=== PATIENT | female | born 1985 | race Caucasian/White ===

== ENCOUNTER 2018-08-23 23:27 | Emergency (ER) | payer BC ==
--- OUTSIDE RECORDS SUMMARY | 2018-08-23 23:30 | XMS REPORT ---
:1985 [facility] Address [address] [place] [address] Care Team Providers Name Role Phone Unavailable Unavailable Unavailable Payers Payer Name Policy Type Policy Number Effective Date Expiration Date Problems This patient has no known problems. Allergies, Adverse Reactions, Alerts Allergy Name Allergy Status Severity Reaction(s) Onset Inactive Treating Comments Type Date Date Clinician No Known DA Active U 2009- Intolerances 3-22 00:00: 00 Medications This patient has no known medications.
--- OUTSIDE RECORDS SUMMARY | 2018-08-23 23:30 | XMS REPORT ---
:1985 Author Organization eClinicalWorks Care Team Providers Name Role Phone Jose G Anderson Provider Role Unavailable Allergies No Known Allergies Problems Problem Type Condition Code Onset Dates Condition Status Assessment Pelvic congestion syndrome N94.89 Active Assessment Pelvic pain R10.2 Active Assessment IUD surveillance Z30.431 Active Problem IUD surveillance Z30.431 Active Problem Acute vaginitis N76.0 Active Problem Pelvic congestion syndrome N94.89 Active Problem Encounter for gynecological Z01.419 Active examination without abnormal finding Problem Pelvic pain R10.2 Active Problem Encounter for insertion of mirena Z30.430 Active IUD Medications No Known Medications Results No Known Results Summary Purpose eClinicalWorks Submission
--- OUTSIDE RECORDS SUMMARY | 2018-08-23 23:30 | XMS REPORT ---
:1985 Author Organization eClinicalWorks Care Team Providers Name Role Phone Kenrick Andersonswinder Provider Role Unavailable Allergies, Adverse Reactions, Alerts Substance Reaction Event Type N.K.D.A. Info Not Available Non Drug Allergy Problems Problem Type Condition Code Onset Dates Condition Status Assessment Acute vaginitis N76.0 Active Assessment Pelvic pain R10.2 Active Assessment IUD surveillance Z30.431 Active Problem IUD surveillance Z30.431 Active Problem Acute vaginitis N76.0 Active Problem Pelvic congestion syndrome N94.89 Active Problem Encounter for gynecological Z01.419 Active examination without abnormal finding Problem Pelvic pain R10.2 Active Problem Encounter for insertion of mirena Z30.430 Active IUD Medications Medication Code Code Instructions Start End Status Dosage System Date Date Wellbutrin SR [facility] 27729993195 150 MG Orally Active 1 tablet Twice a day Mirena (52 MG) [facility] 54365012323 20 MCG/24HR Active as directed Intrauterine Flagyl ND 22783816777 500 MG Orally Apr 06, Active 1 tablet every 12 hours 2017 Results Name Result Date Reference Range Unit Abnormality Flag URINALYSIS AUTO W/O SCOPE (49286) ----NIT neg 20180406 ----URO 0.2 20180406 ----PROTEIN neg 20180406 ----pH 6.5 20180406 ----BLO neg 20180406 ----GLUCOSE neg 20180406 ----JEANNE 1+ 20180406 ----BILIRUBIN neg 20180406 ----KETONES neg 20180406 ----SPECIFIC 1.025 20180406 GRAVITY SURESWAB(R), VAGINOSIS/VAGINITIS PLUS ----C. TROPICALIS, NOT DETECTED 20180406 DNA ----GARDNERELLA 7.9 20180406 Log VAGINALIS (cells/mL) ----C. NOT DETECTED 20180406 PARAPSILOSIS, DNA ----MEGASPHAERA 7.0 20180406 Log SPECIES (cells/mL) ----C. ALBICANS, NOT DETECTED 20180406 DNA ----C. GLABRATA, NOT DETECTED 20180406 DNA ----SURESWAB(R) NOT DETECTED 20180406 TRICHOMONAS VAGINALIS RNA, QL, TMA ----LACTOBACILLUS DETECTED 20180406 Log SPECIES (cells/mL) ----ATOPOBIUM 7.6 20180406 Log VAGINAE (cells/mL) ----NEISSERIA NOT DETECTED 20180406 GONORRHOEAE RNA, TMA, UROGENITAL ----BV CATEGORY: EQUIVOCAL 20180406 A ----CHLAMYDIA NOT DETECTED 20180406 TRACHOMATIS RNA, TMA, UROGENITAL Summary Purpose eClinicalWorks Submission
--- OUTSIDE RECORDS SUMMARY | 2018-08-23 23:30 | XMS REPORT ---
:1985 Author Organization eClinicalWorks Care Team Providers Name Role Phone Jose G Anderson Provider Role Unavailable Allergies, Adverse Reactions, Alerts Substance Reaction Event Type N.K.D.A. Info Not Available Non Drug Allergy Problems Problem Type Condition Code Onset Dates Condition Status Assessment Surveillance for control, Z30.431 Active intrauterine device Problem Encounter for gynecological Z01.419 Active examination without abnormal finding Assessment Encounter for initial prescription Z30.015 Active of vaginal ring hormonal contraceptive Problem Encounter for initial prescription Z30.015 Active of vaginal ring hormonal contraceptive Problem Pelvic congestion syndrome N94.89 Active Problem Surveillance for control, Z30.431 Active intrauterine device Problem Acute vaginitis N76.0 Active Problem Encounter for insertion of mirena Z30.430 Active IUD Problem Pelvic pain R10.2 Active Problem IUD surveillance Z30.431 Active Medications Medication Code Code Instructions Start End Status Dosage System Date Date Wellbutrin SR [facility] 21479174506 150 MG Orally Active 1 tablet Twice a day Mirena (52 MG) [facility] 22823791327 20 MCG/24HR May 09, Active as directed Intrauterine 2019 NuvaRing [facility] 86632923902 0.12-0.015 May 09, Active 1 ring MG/24HR Vaginal 2019 insert vaginally for 3 weeks Results No Known Results Summary Purpose eClinicalWorks Submission
--- OUTSIDE RECORDS SUMMARY | 2018-08-23 23:30 | XMS REPORT ---
:1985 Author Organization eClinicalWorks Care Team Providers Name Role Phone Monica Jose G Provider Role Unavailable Allergies, Adverse Reactions, Alerts Substance Reaction Event Type N.K.D.A. Info Not Available Non Drug Allergy Problems Problem Type Condition Code Onset Dates Condition Status Assessment Encounter for gynecological Z01.419 Active examination without abnormal finding Problem Encounter for gynecological Z01.419 Active examination without abnormal finding Assessment Well woman exam with routine Z01.419 Active gynecological exam Assessment General counseling and advice on Z30.09 Active contraceptive management Medications Medication Code Code Instructions Start End Date Status Dosage System Date Wellbutrin SR [facility] 77187682256 150 MG Orally Active 1 tablet Twice a day Lorri 28 [facility] 99744588565 3-0.03 MG Orally Active 1 tablet Once a day Results Name Result Date Reference Range Unit Abnormality Flag TEST URINE ----RESULTS NEG 20171014 URINALYSIS AUTO W/O SCOPE (26217) ----PROTEIN 1+ 20171014 ----pH 7.0 20171014 ----NIT NEGATIVE 20171014 ----JEANNE NEGATIVE 20171014 ----URO 0.2 20171014 ----SPECIFIC GRAVITY 1.020 20171014 ----BLO NEGATIVE 20171014 ----BILIRUBIN NEGATIVE 20171014 ----KETONES NEGATIVE 20171014 ----GLUCOSE NEGATIVE 20171014 Summary Purpose eClinicalWorks Submission
--- OUTSIDE RECORDS SUMMARY | 2018-08-23 23:30 | XMS REPORT ---
:1985 Author Organization eClinicalWorks Care Team Providers Name Role Phone Jose G Anderson Provider Role Unavailable Allergies No Known Allergies Problems Problem Type Condition Code Onset Dates Condition Status Problem Encounter for gynecological Z01.419 Active examination without abnormal finding Problem Encounter for initial prescription Z30.015 Active of vaginal ring hormonal contraceptive Problem Pelvic congestion syndrome N94.89 Active Problem Surveillance for control, Z30.431 Active intrauterine device Problem Acute vaginitis N76.0 Active Problem Encounter for insertion of mirena Z30.430 Active IUD Problem Pelvic pain R10.2 Active Problem IUD surveillance Z30.431 Active Medications Medication Code Code Instructions Start End Status Dosage System Date Date Clindamycin [facility] 67259573186 1 % Externally May 18, Jun 17, Active 1 application Phosphate Twice a day 2018 2018 to affected area Results No Known Results Summary Purpose eClinicalWorks Submission
--- OUTSIDE RECORDS SUMMARY | 2018-08-23 23:30 | XMS REPORT ---
:1985 Author Organization eClinicalWorks Care Team Providers Name Role Phone MonicaFatemehJose G Provider Role Unavailable Allergies, Adverse Reactions, Alerts Substance Reaction Event Type N.K.D.A. Info Not Available Non Drug Allergy Problems Problem Type Condition Code Onset Dates Condition Status Problem Encounter for gynecological Z01.419 Active examination without abnormal finding Problem Encounter for insertion of mirena Z30.430 Active IUD Assessment Encounter for insertion of mirena Z30.430 Active IUD Medications Medication Code Code Instructions Start End Date Status Dosage System Date Wellbutrin SR [facility] 94390366236 150 MG Orally Active 1 tablet Twice a day Lorri 28 [facility] 59899866903 3-0.03 MG Orally Active 1 tablet Once a day Results Name Result Date Reference Range Unit Abnormality Flag TEST URINE ----RESULTS NEG 20171104 URINALYSIS AUTO W/O SCOPE (62242) ----PROTEIN NEG 20171104 ----pH 7.5 20171104 ----NIT NEG 20171104 ----JEANNE NEG 20171104 ----URO 0.2 20171104 ----SPECIFIC GRAVITY 1.015 20171104 ----BLO 1+ 20171104 ----BILIRUBIN NEG 20171104 ----KETONES 1+ 20171104 ----GLUCOSE NEG 20171104 Summary Purpose eClinicalWorks Submission
[2018-08-24] MEDS ORDERED: MORPHINE 4 MG/ML SYR ONE ×2 (00:01→02:28)
[2018-08-24] MEDS ORDERED: NA CHLORIDE 0.9% 1,000 ML ONE (00:01)
[2018-08-24] MEDS ORDERED: ONDANSETRON 4 MG/2 ML VIAL ONE ×2 (00:01→02:28)
[2018-08-24 00:10] LABS: Absolute Lymphocytes (CBC) 2.5 K/uL (0.7-4.9); Absolute Monocytes 0.6 K/uL (0.1-1.3); Absolute Neutrophil 4.7 K/uL (1.8-8.0); Basophils % 0.4 % (0-1.3); Eosinophils % 5.5 % (0-4.4); Lymphocytes % 30.2 % (15.3-44.8); MPV 7.6 fL (7.6-11.3); Monocytes % 7.5 % (3.3-12.3); RBC Red Blood Cell Count 4.37 M/uL (3.86-4.86)
[2018-08-24 00:27] LABS: ALT/SGPT 20 U/L (12-78); AST/SGOT 14 U/L (15-37); Albumin 3.8 g/dL (3.4-5.0); Alkaline Phosphatase 69 U/L (45-117); BUN Blood Urea Nitrogen 11 mg/dL (7-18); Bicarbonate 23 mmol/L (21-32); Bilirubin Direct < 0.1 mg/dL (0-0.2); Bilirubin Total 0.3 mg/dL (0.2-1.0); Glucose Level 121 mg/dL (74-106); Lipase 152 U/L (73-393); Potassium 3.4 mmol/L (3.5-5.1); Protein, Total 7.4 g/dL (6.4-8.2); Sodium Level 142 mmol/L (136-145)
[2018-08-24 01:09] LABS: Urine Blood NEGATIVE (NEG); Urine Glucose NEGATIVE (NEG); Urine Protein NEGATIVE (NEG)
--- NOTE | 2018-08-24 02:58 | ER ---
Nurse's Notes [facility] Name: Korin Medrano Age: 33 yrs Sex: Female : 1985 Arrival Date: 08/23/2018 Time: 23:32 Bed 25 Private MD: Cody Larkin E Diagnosis: Gastrointestinal hemorrhage, unspecified;Abdominal tenderness Presentation: 08/23 23:38 Presenting complaint: Patient states: Had colonoscopy on Wednesday, reports lower tl2 abdominal pain and rectal bleeding started this morning with increased bleeding throughout the day. Pt reports feeling nausea, chills and clamminess. Transition of care: patient was not received from another setting of care. Onset of symptoms was August 23, 2018. Risk Assessment: Do you want to hurt yourself or someone else? Patient reports no desire to harm self or others. Initial Sepsis Screen: Does the patient meet any 2 criteria? No. Patient's initial sepsis screen is negative. Does the patient have a suspected source of infection? No. Patient's initial sepsis screen is negative. Care prior to arrival: None. 23:38 Method Of Arrival: Ambulatory tl2 23:38 Acuity: DERIAN 3 tl2 Triage Assessment: 23:40 General: Appears in no apparent distress. uncomfortable, Behavior is calm, cooperative, tl2 appropriate for age. Pain: Complains of pain in right lower quadrant and left lower quadrant. GI: Reports lower abdominal pain, rectal bleeding, nausea. 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 - Social history:: Smoking status: Patient/guardian denies using tobacco. - Ebola Screening: : No symptoms or risks identified at this time. Screenin:42 Abuse screen: Denies threats or abuse. Nutritional screening: No deficits noted. tl2 Tuberculosis screening: No symptoms or risk factors identified. Fall Risk None identified. Assessment: 23:40 General: Appears in no apparent distress. comfortable, Behavior is calm, cooperative, ca1 appropriate for age. Pain: Complains of pain in right lower quadrant and left lower quadrant Pain does not radiate. Pain currently is 7 out of 10 on a pain scale. Pain began 1 day ago. 23:41 Neuro: Level of Consciousness is awake, alert, obeys commands, Oriented to person, ca1 place, time, situation. Cardiovascular: Heart tones S1 S2 present Capillary refill < 3 seconds Patient's skin is warm and dry. Respiratory: Airway is patent Respiratory effort is even, unlabored, Respiratory pattern is regular, symmetrical, Breath sounds are clear bilaterally. GI: Abdomen is flat, non-distended, Bowel sounds present X 4 quads. Abd is soft X 4 quads Abdomen is tender to palpation in right lower quadrant and left lower quadrant Reports nausea. GI: Reports rectal bleeding. : No deficits noted. No signs and/or symptoms were reported regarding the genitourinary system. EENT: No deficits noted. No signs and/or symptoms were reported regarding the EENT system. Derm: Skin is intact, is healthy with good turgor, Skin is pink, warm \T\ dry. Musculoskeletal: Circulation, motion, and sensation intact. Capillary refill < 3 seconds. 08/24 00:36 Reassessment: Patient appears in no apparent distress at this time. Patient and/or ca1 family updated on plan of care and expected duration. Pain level reassessed. Patient is alert, oriented x 3, equal unlabored respirations, skin warm/dry/pink. 02:39 Reassessment: Patient appears in no apparent distress at this time. Patient and/or rv family updated on plan of care and expected duration. Pain level reassessed. Patient is alert, oriented x 3, equal unlabored respirations, skin warm/dry/pink. patient's pain is fluctuating. still bleeding from the lower GI as evidence by fresh blood. plan of care explained by Dr Elias. for transfer to another facility. 03:11 Reassessment: Patient appears in no apparent distress at this time. Patient and/or rv family updated on plan of care and expected duration. Pain level reassessed. Patient is alert, oriented x 3, equal unlabored respirations, skin warm/dry/pink. PAIN GOT BETTER AFTER GIVING PAIN MEDICINE. CALLED REPORT TO KIMBERLY YUNG RN OF [facility]. AWAITING TRANSPORT. Vital Signs: 08/23 23:40 BP 126 / 86; Pulse 89; Resp 18; Temp 97.8(O); Pulse Ox 100% on R/A; Weight 63.5 kg; tl2 Height 5 ft. 6 in. (167.64 cm); Pain 7/10; 08/24 00:36 BP 106 / 72; Pulse 71; Resp 18 S; Pulse Ox 100% on R/A; ca1 01:30 BP 99 / 55; Pulse 84; Resp 18; Pulse Ox 99% ; rv 02:00 BP 111 / 78; Pulse 77; Resp 17; Pulse Ox 100% ; rv 02:40 BP 116 / 77; Pulse 78; Resp 16; Pulse Ox 98% ; rv 02:43 Pain 2/10; rv 02:43 Pain 2/10; rv 03:00 BP 117 / 77; Pulse 79; Resp 17; Pulse Ox 98% ; rv 08/23 23:40 Body Mass Index 22.60 (63.50 kg, 167.64 cm) tl2 ED Course: 08/23 23:32 Patient arrived in ED. es 23:33 Cody Larkin MD is Private Physician. es 23:40 Julia Vazquez RN is Primary Nurse. ca1 23:40 Triage completed. tl2 23:40 Arm band placed on right wrist. tl2 23:42 Patient has correct armband on for positive identification. Placed in gown. Bed in low tl2 position. Call light in reach. Side rails up X 1. Adult w/ patient. 23:44 Jono Elias MD is Attending Physician. tw4 23:45 Pulse ox on. NIBP on. ca1 23:50 Inserted saline lock: 20 gauge in right antecubital area, using aseptic technique. ca1 ,using aseptic technique. by MARCUS Adams Blood collected. 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 rv 00:00 Patient transferred, IV remains in place. rv 00:15 Radiology exam delayed due to lab results not completed at this time. (BUN/Creatinine) vm2 test not completed at this time. 00:32 Radiology exam delayed due to test not completed at this time. kw1 01:32 CT Abd/Pelvis - W/Contrast In Process Unspecified. EDMS Administered Medications: 08/23 23:50 Drug: NS 0.9% 1000 ml Route: IV; Rate: 1 bolus; Site: right antecubital; ca1 08/24 00:45 Follow up: Urine output 190 ml; Response: No adverse reaction; IV Status: Completed ca1 infusion 08/23 23:51 Drug: Zofran 4 mg Route: IVP; Site: right antecubital; ca1 08/24 00:45 Follow up: Response: No adverse reaction; Nausea is decreased ca1 08/23 23:55 Drug: morphine 4 mg Route: IVP; Site: right antecubital; ca1 08/24 00:45 Follow up: Response: No adverse reaction; Pain is decreased ca1 02:20 Drug: morphine 4 mg Route: IVP; Site: right antecubital; rv 02:43 Follow up: Pain 2/10 Adult; Response: Pain is decreased rv 02:20 Drug: Zofran 4 mg Route: IVP; Site: right antecubital; rv 02:43 Follow up: Pain 2/10 Adult; Response: Pain is decreased rv Output: 00:45 Urine: 190ml; Total: 190ml. ca1 Outcome: 02:57 ER care complete, transfer ordered by . tw4 03:10 Transferred by ground EMS to other acute care facility: [facility]. rv Transfer form completed. X-rays sent w/ patient. 03:10 Condition: stable 03:10 Instructed on the need for transfer, Demonstrated understanding of instructions. 03:22 Patient left the ED. rv Signatures: Dispatcher [employer] Love Hirsch Taylor, MARCUS RN 2 Pretty Gray 2 Seema Martinez kw1 Jono Elias MD MD tw4 Jamal Robert RN RN rv Julia Vazquez RN RN ca1 Corrections: (The following items were deleted from the chart) 08/23 23:43 23:40 Pain: Complains of pain in right lower quadrant and left lower quadrant Pain does ca1 not radiate. Pain ca1 23:43 23:40 Pain: Complains of pain in right lower quadrant and left lower quadrant Pain does ca1 not radiate. Pain began 1 day ago. ca1 23:43 23:41 Pain: Pain ca1 ca1
--- NOTE | 2018-08-24 02:58 | EDPHYS ---
Physician Documentation [facility] Name: Korin Medrano Age: 33 yrs Sex: Female : 1985 Arrival Date: 08/23/2018 Time: 23:32 Bed 25 Private MD: Cody Larkin E ED Physician Jono Elias HPI: 08/24 00:36 This 33 yrs old Female presents to ER via Ambulatory with complaints of tw4 Abdominal Pain, Rectal Bleeding. 00:36 The patient presents to the emergency department with bleeding from the rectum/anus. tw4 Onset: The symptoms/episode began/occurred today. Context: the patient is post surgical, colonsoscopy. Modifying factors: The symptoms are alleviated by nothing, The symptoms are aggravated by nothing. Associate signs and symptoms: The patient has no apparent associated signs or symptoms. The patient has not experienced similar symptoms in the past. 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 - Social history:: Smoking status: Patient/guardian denies using tobacco. - Ebola Screening: : No symptoms or risks identified at this time. ROS: 08/24 00:36 Constitutional: Negative for fever, chills, and weight loss, Eyes: Negative for injury, tw4 pain, redness, and discharge, Cardiovascular: Negative for chest pain, palpitations, and edema, Respiratory: Negative for shortness of breath, cough, wheezing, and pleuritic chest pain, MS/Extremity: Negative for injury and deformity, Skin: Negative for injury, rash, and discoloration, Neuro: Negative for headache, weakness, numbness, tingling, and seizure. Abdomen/GI: Positive for abdominal pain, rectal pain, rectal bleeding, Negative for nausea and vomiting, nausea, vomiting, and diarrhea, nausea, vomiting, diarrhea, abdominal distension, anorexia, dysphagia, hematemesis, bowel incontinence, flatulence. Exam: 00:36 Constitutional: This is a well developed, well nourished patient who is awake, alert, tw4 and in no acute distress. Head/Face: Normocephalic, atraumatic. Chest/axilla: Normal chest wall appearance and motion. Nontender with no deformity. No lesions are appreciated. Cardiovascular: Regular rate and rhythm with a normal S1 and S2. No gallops, murmurs, or rubs. Normal PMI, no JVD. No pulse deficits. Respiratory: Lungs have equal breath sounds bilaterally, clear to auscultation and percussion. No rales, rhonchi or wheezes noted. No increased work of breathing, no retractions or nasal flaring. Back: No spinal tenderness. No costovertebral tenderness. Full range of motion. MS/ Extremity: Pulses equal, no cyanosis. Neurovascular intact. Full, normal range of motion. Vital Signs: 08/23 23:40 BP 126 / 86; Pulse 89; Resp 18; Temp 97.8(O); Pulse Ox 100% on R/A; Weight 63.5 kg; tl2 Height 5 ft. 6 in. (167.64 cm); Pain 7/10; 08/24 00:36 BP 106 / 72; Pulse 71; Resp 18 S; Pulse Ox 100% on R/A; ca1 01:30 BP 99 / 55; Pulse 84; Resp 18; Pulse Ox 99% ; rv 02:00 BP 111 / 78; Pulse 77; Resp 17; Pulse Ox 100% ; rv 02:40 BP 116 / 77; Pulse 78; Resp 16; Pulse Ox 98% ; rv 02:43 Pain 2/10; rv 02:43 Pain 2/10; rv 03:00 BP 117 / 77; Pulse 79; Resp 17; Pulse Ox 98% ; rv 08/23 23:40 Body Mass Index 22.60 (63.50 kg, 167.64 cm) tl2 MDM: 08/23 23:44 Patient medically screened. tw4 08/24 02:58 Differential diagnosis: hemorrhoids. Data reviewed: vital signs, nurses notes. Data tw4 interpreted: Pulse oximetry: Interpretation: normal. Counseling: I had a detailed discussion with the patient and/or guardian regarding: the historical points, exam findings, and any diagnostic results supporting the discharge/admit diagnosis, lab results, radiology results. Physician consultation: Caryn Polanco MD was contacted at 02:45, regarding regarding transfer, after a discussion of the case, a recommendation for transfer for higher level of care is made. Awaiting: transfer to another facility. ED course: Pt rested comfortably on the stretcher in the ED. Pt had one additional episode of rectal bleeding that was bright red. 08/23 23:46 Order name: Basic Metabolic Panel; Complete Time: 01:[address] [facility] 08/24 01:05 Interpretation: Normal except: K 3.4; CL 108; GLUC 121. [facility] 08/23 23:46 Order name: CBC with Diff; Complete Time: 01:[address] [facility] 08/24 01:05 Interpretation: Within normal limits. [facility] 08/23 23:46 Order name: Creatinine for Radiology [facility] 08/23 23:46 Order name: Hepatic Function; Complete Time: 01:[address] [facility] 08/24 01:06 Interpretation: Normal except: AST 14; GLOB 3.6. [facility] 08/23 23:46 Order name: Lipase; Complete Time: 01:[address] [facility] 08/24 01:06 Interpretation: Within normal limits: LIP 152. [facility] 08/24 00:45 Order name: Urine Dipstick--Ancillary (enter results) ne 08/23 23:46 Order name: IV Saline Lock; Complete Time: 23:[address] [facility] 08/23 23:46 Order name: CT Abd/Pelvis - W/Contrast [facility] 08/24 00:45 Order name: Urine --Ancillary (enter results) ne 08/23 23:46 Order name: Labs collected and sent; Complete Time: 23:[address] [facility] Administered Medications: 08/23 23:50 Drug: NS 0.9% 1000 ml Route: IV; Rate: 1 bolus; Site: right antecubital; [facility] 08/24 00:45 Follow up: Urine output 190 ml; Response: No adverse reaction; IV Status: Completed ca1 infusion 08/23 23:51 Drug: Zofran 4 mg Route: IVP; Site: right antecubital; ca1 08/24 00:45 Follow up: Response: No adverse reaction; Nausea is decreased ca1 08/23 23:55 Drug: morphine 4 mg Route: IVP; Site: right antecubital; ca1 08/24 00:45 Follow up: Response: No adverse reaction; Pain is decreased ca1 02:20 Drug: morphine 4 mg Route: IVP; Site: right antecubital; rv 02:43 Follow up: Pain 2/10 Adult; Response: Pain is decreased rv 02:20 Drug: Zofran 4 mg Route: IVP; Site: right antecubital; rv 02:43 Follow up: Pain 2/10 Adult; Response: Pain is decreased rv Disposition: 08/24/18 02:57 Transfer ordered to Other Acute Care Facility. Diagnosis are Gastrointestinal hemorrhage, unspecified, Abdominal tenderness. - Reason for transfer: Higher level of care. - Accepting physician is Dr De La Rosa. - Condition is Stable. - Problem is new. - Symptoms are unchanged. Signatures: Dispatcher [employer] EDDorothy Blount, RN RN tl2 Jono Elias MD MD tw4 Jamal Robert RN RN rv George, Julia RN RN ca1 Corrections: (The following items were deleted from the chart) 03:22 02:57 08/24/2018 02:57 Transfer ordered to Other Acute Care Facility. Diagnosis is rv Gastrointestinal hemorrhage, unspecified; Abdominal tenderness. Reason for transfer: Higher level of care. Accepting physician is Dr De La Rosa. Condition is Stable. Problem is new. Symptoms are unchanged. tw4
[2018-08-24 03:29] VITALS: TEMP 97.8
[2018-08-24 03:34] VITALS: O2SAT 98
[2018-08-24 03:36] VITALS: BP 117/77
--- NOTE | 2018-08-24 12:37 | RAD REPORT ---
EXAM DESCRIPTION: CT - Abdomen Pelvis W Contrast - 08/24/2018 2:07 am CLINICAL HISTORY: The patient is 33 years old and is Female; ABD PAIN TECHNIQUE: Axial computed tomography images of the abdomen and pelvis with intravenous contrast. S agittal and coronal reformatted images were created and reviewed. This CT exam was performed using one or more of the following dose reduction techniques: automated exposure control, adjustment of t he mA and/or kV according to patient size, and/or use of iterative reconstruction technique. COMPARISON: None. FINDINGS: LUNG BASES: Unremarkable. No mass. No consolidation. ABDOMEN: LIVER: Mild hepatomegaly measuring 21.3 cm. GALLBLADDER AND BILE DUCTS: Prior cholecystectomy. No ductal dilation. PANCREAS: Unremarkable. No mass. No ductal dilation. SPLEEN: Unremarkable. No splenomegaly. ADRENALS: Unremarkable. No mass. KIDNEYS AND URETERS: Unremarkable. No solid mass. No hydronephrosis. STOMACH AND BOWEL: Unremarkable. No obstruction. No mucosal thickening. PELVIS: APPENDIX: Prior appendectomy. BLADDER: Unremarkable. No mass. REPRODUCTIVE: Hypodense ring is seen in the region of the pelvis surrounding the lower uterine seg ment/vaginal canal. Prominent tortuous pelvic vasculature. ABDOMEN and PELVIS: INTRAPERITONEAL SPACE: Unremarkable. No free air. No significant fluid collection. BONES/JOINTS: No acute fracture. No dislocation. SOFT TISSUES: Subglandular breast implants. Small fat-containing umbilical hernia. VASCULATURE: See above. LYMPH NODES: Unremarkable. No enlarged lymph nodes. IMPRESSION: 1. No acute abdominal or pelvic abnormality. 2. Mild hepatomegaly. 3. Prior cholecystectomy and appendectomy. 4. Prominent and tortuous pelvic vasculature which may be due to pelvic congestion syndrome. 5. Foreign body in the vaginal canal/lower uterine segment, likely postprocedural. Electronically signed by: Gama Limon DO 08/24/2018 1:47 AM CDT Due to temporary technical issues with the PACS/Fluency reporting system, reports are being signed by the in house radiologist as a courtesy to ensure prompt reporting. The interpreting radiologist is f ully responsible for the content of the report.
== END 2018-08-24 03:22 ==
LOC: ER 23:27
DX: R10.819 Abdominal tenderness, unspecified site (principal); Z91.013 Allergy to seafood; Z98.890 Other specified postprocedural states
CPT/HCPCS: 36415; 74177; 80048; 80076; 81003; 81025; 83690; 85025; 96361; 96374; 96375; 99285; J2405; Q9967

== ENCOUNTER 2022-03-31 19:41 | Emergency (ER) | payer BC, SELFPAY ==
--- OUTSIDE RECORDS SUMMARY | 2022-03-31 19:44 | XMS REPORT | Continuity of Care Document ---
:1985 Author Organization [facility] t Address [address] [place] [address] [address] [place] [address] Care Team Providers Name Role Phone PCP, PATIENT DOES NOT HAVE A Primary Care Physician Unavaila YEE Baez Attending Clinician Unavailable Radiology Attending Clinician Unavailable Payers Payer Name Policy Type Policy Number Effective Date Expiration Date S jean [employer]E [employer]UE [id number] 2018 ADVANTAGE HMO 00:00:00 Problems Condition Condition Condition Status Onset Resolution Last Treating Co mments Source Name Details Category Date Date Treatment Clinician Date Dysuria Dysuria Disease Active 2007-04 Univers 05-24 ity of 00:00: [place] 00 [facility] Branch Appendicit Appendicit Disease Active Overview : Univers is is 3-03 ICD10 ity of 00:00: 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 Encounter Encounter Problem Active Com mon for for Spirit gynecologi gynecologi - [facility] examinatio examinatio Janell kes n without n without Medi pedro abnormal abnormal Center finding finding Encounter Encounter Problem Active Com mon for for Spirit insertion insertion - [facility] I of mirena of mirena St IUD IUD [facility] Acute Acute Problem Active Common vaginitis vaginitis Spir it - [facility] Pelvic Pelvic Problem Active Common pain pain Spirit - [facility] IUD IUD Problem Active Common surveillan surveillan Sp gelacio ce ce - [facility] 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 prescripti prescripti St on of on of [facility] vaginal vaginal Medical ring ring [place] hormonal hormonal contracept contracept casper casper Menorrhagi Menorrhagi Problem Active C ommon a with a with Spirit irregular irregular - CH I cycle cycle [facility] Allergies, Adverse Reactions, Alerts Allergy Allergy Status Severity Reaction(s) Onset Inactive Treating Comm ents Source Name Type Date Date Clinician jayant DA Active [facility] h 5-01 [place] derived 00:00: d 00 [facility] meperi DA Active U 2009-04 [facility] ne HCl 1-26 [place] 00:00: d 00 [facility] Active Itching Unive rs ne Hcl ty to 6-25 ity of adverse 00:00: [place] reaction 00 Medical s Branch MEPERIDI DRUG Active ITCHING Univers NE HCL INGREDI 6-25 ity of 00:00: [place] 00 Medical Branch No Known DA Active U [facility] Intolera 3-22 [place] nces 00:00: d 00 [facility] Social History Social Habit Start Date Stop Date Quantity Comments Source Alcohol intake [facility] Alcohol Comment socially Universit y [facility] Sex Assigned At Uni versity [facility] Smoking Status Start Date Stop Date Source Never smoker [facility] Medications Ordered Filled Start Stop Current Ordering Indication Dosage Frequency Signature Comments Components Source Medication Medication Date Date Medication? Clinician (SIG) Name Name gadoterate 2019- No .2mL/kg 0.2 mL/kg, Univers meglumine 11-25 08- Intravenou ity of (DOTAREM-15 21:30: 20:08 s, ONCE, 1 [place] mL) 00 :00 dose, Fri Medical injection 11/25/18 at [facility] h 0.2 mL/kg 1630, Routine Clindamycin Clindamycin 2019- No Jose G 1 Common Phosphate Phosphate 05-18 Rekhi applicatio Spirit 00:00: 00:00 n to - [facility] 00 :00 affected [facility] fexofenadin 2009-04 Yes [id number] 180mg Take 1 Tab Univers e (ALBIN) - by mouth ity of 180 mg 00:00: daily. [place] tablet 00 Medical Branch NUVARING Yes 1{each} Insert 1 Un jag (NUVARING) 6-29 Each into ity of 0.12-0.015 14:55: vagina [place] mg/24 hr 01 once every Medic al vaginal month. Branch insert Insert vaginally and leave in place for 3 consecutiv e weeks, then remove for 1 week. MULTIVITAMI Yes Take by Uni vers N ORAL 6-29 mouth. ity of 14:55: [place] [facility] Branch Procedures Procedure Date / Time Performed Performing Clinician [facility] e MR BREAST BILATERAL W 2018-11-25 20:27:50 [facility], [facility] Encounters Start End Encounter Admission Attending Care Care Encounter Source Date/Time Date/Time Type Type Clinicians Facility Department ID 2020-08-02 2020-08-02 Outpatient Ludy FRITZ, [facility] [id number] Univers 12:40:00 12:29:13 YEE ity of [facility] 2020-07-12 2020-07-12 Outpatient [facility] [id number] Univers 12:40:00 12:40:00 ity of [facility] 2019-01-31 2019-01-31 Out[facility] [id number] Common 11:41:00 11:41:00 [facility] Clinic [facility] 2018-11-25 2018-11-25 Hospital Radiology [facility] [id number] Univers 13:45:02 23:59:00 Encounter SPECIALTY [id number] ity of CARE [id number] Eduin [facility] AT [id number] Sd aries BERRY 804 [facility] 2018-05-18 2018-05-18 Out[facility] [id number] Common 08:51:00 08:51:00 t [facility] pirit [facility] 2018-05-09 2018-05-09 [facility] [id number] Common 15:30:00 15:30:00 t Women [facility]omens Care pirit [facility] 2018-04-06 2018-04-06 [facility] [id number] Common 15:28:00 15:28:00 t Women [facility]omens Care pirit [facility] 2018-04-06 2018-04-06 [facility] [id number] Common 11:00:00 11:00:00 [facility] 2017-11-04 2017-11-04 Out[facility] [id number] Common 15:30:00 15:30:00 t Women's Women's Spir it Care Care [facility] 2017-10-14 2017-10-14 Out[facility] [id number] Common 10:45:00 10:45:00 t Women's Women's Spir it Care [facility] Results Test Description Test Time Test Comments Results Result Sour e Comments MR BREAST Examination:MR BREAST Uni versity of BILATERAL W WO 2 BILATERAL W WO [facility] CONTRAST 20:38:38 CONTRAST Branch History:Patient is 33 year old and is seen for: Implant evaluation. No relevant family history has been documented for this patient. No relevant hormone history has been documented for this patient. No relevant surgical history has been documented for this patient. No relevant medical history has been documented for this patient. Comparisons : None available Technique: Axial 3-D images with and without fat saturation; axial T2 fat saturated images; dynamic axial 3-D T1 images with fat saturation post gadolinium and sagittal 3-D T1 fat saturated images post gadolinium of both left and right breasts. Dynamic enhancement images were reviewed, and time enhancement curves were generated utilizing [employer] ([place]) software. The MRI kinetic data including peak enhancement values, wash out percentages, and wash out curves were processed by physician at independent [employer] workstation. The post processing is medically necessary to comprehensively evaluate the MRI to diagnose breast cancer. Findings:The breasts have extremely fibroglandular tissue. The background parenchymal enhancement is minimal and symmetric. There is no evidence of suspicious masses, abnormal enhancement, or other abnormal findings. There is no lymphadenopathy. Bilateral breast retropectoral silicone gel implants are intact. Impression:There is no MR evidence of malignancy. Bilateral breast retropectoral silicone gel implants are intact. Recommendation:Follow -up at age 40 or based on current ACR guidelines - BilateralClinical follow-up is also recommended and further management of clinical findings should be based on the results of clinical evaluation. - Bilateral BI-RADS Category: Both 2 - Benign CBC W/AUTO DIFF 2018-08-25 03:53:00 Test Item Value Reference Range Interpretation Comme nts WHITE BLOOD CELL (test code = WBC) 5.7 K/mm3 3.5-11.0 N RED BLOOD CELL (test code = RBC) 4.03 M/mm3 4.70-6.10 L HEMOGLOBIN (test code = HGB) 12.4 G/DL 10.4-14.9 N HEMATOCRIT (test code = HCT) 35.9 % 31.5-44.1 N MEAN CELL VOLUME (test code = MCV) 89.1 Fl 84.5-98.6 N MEAN CELL HGB (test code = MCH) 30.8 pg 27.0-34.2 N MEAN CELL HGB CONCETRATION (test code = MCHC) 34.5 G/DL 31.5-34. 0 H RED CELL DISTRIBUTION WIDTH (test code = RDW) 12.2 SD 11.5-14. 5 N PLATELET COUNT (test code = PLT) 284.0 K/mm3 150-450 N MEAN PLATELET VOLUME (test code = MPV) 8.80 fL 7.0-10.5 N NEUTROPHIL % (test code = NT%) 48.7 % 40-76 LYMPHOCYTE % (test code = LY%) 36.3 % 20.5-51.1 N MONOCYTE % (test code = MO%) 8.8 % 1.7-9.3 N EOSINOPHIL % (test code = EO%) 5.8 % 0.0-6.0 N BASOPHIL % (test code = BA%) 0.4 % 0.0-2.0 N NEUTROPHIL # (test code = NT#) 2.77 K/mm3 1.8-7.6 N LYMPHOCYTE # (test code = LY#) 2.1 K/mm3 0.6-3.2 N MONOCYTE # (test code = MO#) 0.5 K/mm3 0.3-1.1 N EOSINOPHIL # (test code = EO#) 0.3 K/mm3 0.0-0.4 N BASOPHIL # (test code = BA#) 0.0 K/mm3 0.0-0.1 N MANUAL DIFF REQUIRED (test code = MDIFF) NO DIFF/SCN CRITERIA HGB [id number] 15:26:00 Test Item Value Reference Range Interpretation Comments HEMOGLOBIN (test code = HGB) 12.4 G/DL 10.4-14.9 N HEMATOCRIT (test code = HCT) 36.0 % 31.5-44.1 N COMPREHENSIVE METABOLIC [id number] 05:23:00 Test Item Value Reference Range Interpretation Comments SODIUM (test code = NA) 142 mmol/L 134-147 N POTASSIUM (test code = 3.8 mmol/L 3.4-5.0 N K) CHLORIDE (test code = 111 mmol/L 100-108 H CL) CARBON DIOXIDE (test 25 mmol/L 21-32 N code = CO2) ANION GAP (test code = 6.0 GAP calc 4.0-15.0 N GAP) GLUCOSE (test code = 92 MG/DL 70-110 N GLU) BLOOD UREA NITROGEN 6 MG/DL 7-18 L (test code = BUN) GLOMERULAR FILTRATION >=60 max estimate >60 RATE (test code = GFR) estGFR CREATININE (test code = 0.6 MG/DL 0.6-1.0 N CREAT) TOTAL PROTEIN (test code 6.4 G/DL 6.4-8.2 N = PROT) ALBUMIN (test code = 3.3 G/DL 3.4-5.0 L ALB) GLOBULIN (test code = 3.1 GM/dL GLOB) ALBUMIN/GLOBULIN RATIO 1.1 RATIO 1.2-2.2 L (test code = A/G) CALCIUM (test code = CA) 7.7 MG/DL 8.5-10.1 L BILIRUBIN TOTAL (test 0.20 MG/DL 0.2-1.2 N code = BILT) SGOT/AST (test code = 12 Unit/L 15-37 L AST) SGPT/ALT (test code = 17 Unit/L 12-78 N ALT) ALKALINE PHOSPHATASE 49 Unit/L 45-117 N TOTAL (test code = ALKP) CBC W/AUTO [id number] 05:12:00 Test Item Value Reference Range Interpretation Comments WHITE BLOOD CELL (test code = 9.5 K/mm3 3.5-11.0 N WBC) RED BLOOD CELL (test code = RBC) 3.89 M/mm3 4.70-6.10 L HEMOGLOBIN (test code = HGB) 12.0 G/DL 10.4-14.9 N HEMATOCRIT (test code = HCT) 34.7 % 31.5-44.1 N MEAN CELL VOLUME (test code = 89.2 Fl 84.5-98.6 N MCV) MEAN CELL HGB (test code = MCH) 30.8 pg 27.0-34.2 N MEAN CELL HGB CONCETRATION (test 34.6 G/DL 31.5-34.0 H code = MCHC) RED CELL DISTRIBUTION WIDTH (test 12.2 SD 11.5-14.5 N code = RDW) PLATELET COUNT (test code = PLT) 306.0 K/mm3 150-450 N MEAN PLATELET VOLUME (test code = 9.10 fL 7.0-10.5 N MPV) NEUTROPHIL % (test code = NT%) 61.1 % 40-76 N LYMPHOCYTE % (test code = LY%) 26.1 % 20.5-51.1 N MONOCYTE % (test code = MO%) 8.1 % 1.7-9.3 N EOSINOPHIL % (test code = EO%) 4.4 % 0.0-6.0 N BASOPHIL % (test code = BA%) 0.3 % 0.0-2.0 N NEUTROPHIL # (test code = NT#) 5.79 K/mm3 1.8-7.6 N LYMPHOCYTE # (test code = LY#) 2.5 K/mm3 0.6-3.2 N MONOCYTE # (test code = MO#) 0.8 K/mm3 0.3-1.1 N EOSINOPHIL # (test code = EO#) 0.4 K/mm3 0.0-0.4 N BASOPHIL # (test code = BA#) 0.0 K/mm3 0.0-0.1 N MANUAL DIFF REQUIRED (test code = NO DIFF/SCN CRITERIA MDIFF)
[2022-03-31 20:29] LABS: Urine Blood Negative (Negative); Urine Glucose Negative (Negative); Urine Protein Negative (Negative); Urine Specific Gravity 1.025 (1.005-1.030)
[2022-03-31 20:40] LABS: Absolute Lymphocytes (CBC) 2.6 K/uL (0.7-4.9); Hematocrit 37.1 % (36.0-45.0); Lymphocytes % 42.5 % (15.3-44.8); MCV 88.7 fL (80-100); RBC Red Blood Cell Count 4.18 M/uL (3.86-4.86)
[2022-03-31 20:57] LABS: Albumin 3.7 g/dL (3.4-5.0); Bilirubin Total 0.2 mg/dL (0.2-1.0); Potassium 3.6 mmol/L (3.5-5.1); Protein, Total 7.2 g/dL (6.4-8.2)
[2022-03-31] MEDS ORDERED: NA CHLORIDE 0.9% 1,000 ML ONE (21:02)
[2022-03-31] MEDS ORDERED: ONDANSETRON 4 MG/2 ML VIAL ONE (21:02)
[2022-03-31] MEDS ORDERED: FAMOTIDINE 20 MG/2 ML VIAL IV ONE (21:02)
[2022-03-31] MEDS ORDERED: MORPHINE 4 MG/ML SYR ONE (21:04)
[2022-03-31 21:29] LABS: Urine Crystals Unidentified Few /HPF (None Seen); Urine Mucus Slight /HPF (None Seen); Urine RBC <5 /HPF (None Seen)
--- NOTE | 2022-03-31 22:03 | RAD REPORT ---
EXAM DESCRIPTION: CT - Abdomen Pelvis W Contrast - 03/31/2022 9:52 pm CLINICAL HISTORY: Abdominal pain COMPARISON: 2019 TECHNIQUE: Computed axial tomography of the abdomen pelvis was obtained. 100 cc Isovue-300 was admin istered intravenously. Oral contrast was not requested which limits evaluation of bowel and appendix All CT scans are performed using dose optimization technique as appropriate and may include automated exposure control or mA/KV adjustment according to patient size. FINDINGS: Cholecystectomy The liver, spleen, pancreas, adrenal and kidneys appear unremarkable. There is no evidence of diverticulitis. No adnexal mass. Pessary in the pelvis IMPRESSION: No acute abnormality is displayed.
[2022-03-31 22:21] LABS: Urine Specific Gravity/Preg 1.025 (1.005-1.030)
--- NOTE | 2022-03-31 22:23 | ER ---
Nurse's Notes [facility] Name: Korin Dejesus Age: 36 yrs Sex: Female : 1985 Arrival Date: 03/31/2022 Time: 19:42 Bed 27 Private MD: Diagnosis: Pelvic and perineal pain;Other ovarian cysts Presentation: 03/31 20:07 Chief complaint: Patient states: around 6pm today having abdominal pain lower dull ache jh5 but comes in sharp pains but wraps around my back. Coronavirus screen: Vaccine status: Patient reports receiving the 2nd dose of the covid vaccine. Client denies travel out of the [place] in the last 14 days. Ebola Screen: Patient negative for fever greater than or equal to 101.5 degrees Fahrenheit, and additional compatible Ebola Virus Disease symptoms Patient denies exposure to infectious person. Patient denies travel to an Ebola-affected area in the 21 days before illness onset. Initial Sepsis Screen: Does the patient meet any 2 criteria? No. Patient's initial sepsis screen is negative. Does the patient have a suspected source of infection? No. Patient's initial sepsis screen is negative. Risk Assessment: Do you want to hurt yourself or someone else? Patient reports no desire to harm self or others. 20:07 Method Of Arrival: Ambulatory [facility] 20:07 Acuity: DERIAN 3 5 Triage Assessment: 20:10 General: Appears uncomfortable, slender, Behavior is calm, cooperative, appropriate for [facility] age. Pain: Complains of pain in abdomen. GI: Reports lower abdominal pain, diarrhea, nausea. 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 - Social history:: Smoking status: Patient denies any tobacco usage or history of. Screenin:12 Abuse screen: Denies threats or abuse. Denies injuries from another. Nutritional tw5 screening: No deficits noted. Tuberculosis screening: No symptoms or risk factors identified. Fall Risk None identified. Assessment: 21:12 General: Reports "I had a sharp pain that nearly took me to my knees. I took some tw5 iburpophen and that helped with the sharp pain but i am still having a dull ache. It is in my left lower abdomen and it goes throw to my back.". Pain: Complains of pain in left lower quadrant and left femoral area Pain radiates to left low back Pain currently is 4 out of 10 on a pain scale. Neuro: Level of Consciousness is awake, alert, obeys commands, Oriented to person, place, time, situation. Cardiovascular: No deficits noted. Respiratory: No deficits noted. : Reports irregular bleeding. 21:52 Reassessment: Patient states feeling better. Patient states symptoms have improved. tw5 Pain: Denies pain. 22:41 Reassessment: Patient states feeling better. Patient states symptoms have improved. tw5 22:42 GI: tw5 Vital Signs: 20:07 BP 108 / 79; Pulse 81; Resp 18; Temp 98.6; Pulse Ox 98% ; Weight 68.04 kg; Height 5 ft. jh5 6 in. (167.64 cm); Pain 3/10; 21:12 BP 117 / 9; Pulse 97; Resp 18; Pulse Ox 97% on R/A; tw5 21:52 BP 117 / 79; Pulse 72; Resp 18; Pulse Ox 100% ; Pain 0/10; tw5 21:53 Pain 0/10; tw5 22:41 BP 121 / 97; Pulse 69; Resp 18; Pulse Ox 100% ; Pain 0/10; tw5 20:07 Body Mass Index 24.21 (68.04 kg, 167.64 cm) [facility] ED Course: 19:42 Patient arrived in ED. jj6 20:09 Floyd Small MD is Attending Physician. [facility] 20:10 Triage completed. 5 20:10 Arm band placed on right wrist. 5 20:31 Inserted saline lock: 20 gauge in right antecubital area, using aseptic technique. 5 20:59 Urine --Ancillary (enter results) Sent. tw5 21:[address] Scan. tw5 21:12 Patient has correct armband on for positive identification. Placed in gown. Bed in low tw5 position. Call light in reach. Side rails up X 1. Adult w/ patient. monitor technician on. Pulse ox on. Noise minimized. Visitors limited. Moved to private room. Warm blanket given. Verbal reassurance given. 21:12 No provider procedures requiring assistance completed. tw5 21:52 Neha Merino is Primary Nurse. tw5 21:53 CT Abd/Pelvis - IV Contrast Only In Process Unspecified. EDMS 22:42 IV discontinued, intact, bleeding controlled, No redness/swelling at site. Pressure tw5 dressing applied. Administered Medications: 21:08 Drug: NS 0.9% 1000 ml Route: IV; Rate: 1 bolus; Site: right antecubital; tw5 23:25 Follow up: Response: No adverse reaction; IV Status: Completed infusion; IV Intake: tw5 1000ml 21:08 Drug: Pepcid (famotidine) 20 mg Route: IVP; Site: right antecubital; tw5 21:53 Follow up: Response: No adverse reaction tw5 21:09 Drug: Zofran (Ondansetron) 4 mg Route: IVP; Site: right antecubital; tw5 21:53 Follow up: Response: No adverse reaction tw5 21:12 Drug: morphine 4 mg Route: IVP; Infused Over: 4 mins; Site: right antecubital; tw5 21:53 Follow up: Pain 0/10 Adult; Response: No adverse reaction; Pain is decreased; RASS: tw5 Alert and Calm (0) 22:40 Drug: Ketorolac 30 mg Route: IVP; Site: right antecubital; tw5 23:25 Follow up: Response: No adverse reaction tw5 Medication: 21:12 VIS not applicable for this client. tw5 Intake: 23:25 IV: 1000ml; Total: 1000ml. tw5 Outcome: 22:23 Discharge ordered by MD. elliott 22:41 Discharged to home ambulatory, with family. tw5 22:41 Condition: improved 22:41 Discharge instructions given to patient, Instructed on discharge instructions, follow up and referral plans. medication usage, Demonstrated understanding of instructions, follow-up care, medications, Prescriptions given X 3. 23:25 Patient left the ED. tw5 Signatures: Dispatcher [employer] EDMS Floyd Small MD MD cha Wood, Tiffany tw5 Kelly Cameron6 Debbie Walsh, RN RN jh5
--- NOTE | 2022-03-31 22:23 | EDPHYS ---
Physician Documentation [facility] Name: Korin Dejesus Age: 36 yrs Sex: Female : 1985 Arrival Date: 03/31/2022 Time: 19:42 Bed 27 Private MD: ED Physician Floyd Small HPI: 03/31 22:16 This 36 yrs old Female presents to ER via Ambulatory with complaints of lexi Abdominal Cramping. 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 - Social history:: Smoking status: Patient denies any tobacco usage or history of. ROS: 22:17 Constitutional: Negative for fever, chills, and weight loss, Eyes: Negative for injury, lexi pain, redness, and discharge, ENT: Negative for injury, pain, and discharge, Neck: Negative for injury, pain, and swelling, Cardiovascular: Negative for chest pain, palpitations, and edema, Respiratory: Negative for shortness of breath, cough, wheezing, and pleuritic chest pain, Back: Negative for injury and pain, : Negative for injury, bleeding, discharge, and swelling, MS/Extremity: Negative for injury and deformity, Skin: Negative for injury, rash, and discoloration, Neuro: Negative for headache, weakness, numbness, tingling, and seizure, Psych: Negative for depression, anxiety, suicide ideation, homicidal ideation, and hallucinations, Allergy/Immunology: Negative for hives, rash, and allergies, Endocrine: Negative for neck swelling, polydipsia, polyuria, polyphagia, and marked weight changes, Hematologic/Lymphatic: Negative for swollen nodes, abnormal bleeding, and unusual bruising. 22:17 Abdomen/GI: Positive for abdominal pain, of the left lower quadrant. 22:17 Abdomen/GI: Positive for Exam: 22:17 Constitutional: This is a well developed, well nourished patient who is awake, alert, lexi and in no acute distress. Head/Face: Normocephalic, atraumatic. Eyes: Pupils equal round and reactive to light, extra-ocular motions intact. Lids and lashes normal. Conjunctiva and sclera are non-icteric and not injected. Cornea within normal limits. Periorbital areas with no swelling, redness, or edema. ENT: Nares patent. No nasal discharge, no septal abnormalities noted. Tympanic membranes are normal and external auditory canals are clear. Oropharynx with no redness, swelling, or masses, exudates, or evidence of obstruction, uvula midline. Mucous membranes moist. Neck: Trachea midline, no thyromegaly or masses palpated, and no cervical lymphadenopathy. Supple, full range of motion without nuchal rigidity, or vertebral point tenderness. No Meningismus. Chest/axilla: Normal chest wall appearance and motion. Nontender with no deformity. No lesions are appreciated. Cardiovascular: Regular rate and rhythm with a normal S1 and S2. No gallops, murmurs, or rubs. Normal PMI, no JVD. No pulse deficits. Respiratory: Lungs have equal breath sounds bilaterally, clear to auscultation and percussion. No rales, rhonchi or wheezes noted. No increased work of breathing, no retractions or nasal flaring. Back: No spinal tenderness. No costovertebral tenderness. Full range of motion. Female : Normal external genitalia. Skin: Warm, dry with normal turgor. Normal color with no rashes, no lesions, and no evidence of cellulitis. MS/ Extremity: Pulses equal, no cyanosis. Neurovascular intact. Full, normal range of motion. Neuro: Awake and alert, GCS 15, oriented to person, place, time, and situation. Cranial nerves II-XII grossly intact. Motor strength 5/5 in all extremities. Sensory grossly intact. Cerebellar exam normal. Normal gait. Psych: Awake, alert, with orientation to person, place and time. Behavior, mood, and affect are within normal limits. 22:17 Abdomen/GI: Inspection: abdomen appears normal, Bowel sounds: normal, Palpation: mild abdominal tenderness, in the left lower quadrant, Liver: no appreciated palpable abnormalities, Hernia: not appreciated. Vital Signs: 20:07 BP 108 / 79; Pulse 81; Resp 18; Temp 98.6; Pulse Ox 98% ; Weight 68.04 kg; Height 5 ft. jh5 6 in. (167.64 cm); Pain 3/10; 21:12 BP 117 / 9; Pulse 97; Resp 18; Pulse Ox 97% on R/A; tw5 21:52 BP 117 / 79; Pulse 72; Resp 18; Pulse Ox 100% ; Pain 0/10; tw5 21:53 Pain 0/10; tw5 22:41 BP 121 / 97; Pulse 69; Resp 18; Pulse Ox 100% ; Pain 0/10; tw5 20:07 Body Mass Index 24.21 (68.04 kg, 167.64 cm) [facility] MDM: 20:09 Patient medically screened. [facility] 22:21 Differential diagnosis: kidney stone, menometrorrhagia, nonspecific abdominal pain, lexi ovarian cyst, uterine fibroids, urinary tract infection. Data reviewed: vital signs, nurses notes, lab test result(s), radiologic studies, CT scan. Data interpreted: conveyor monitor: not applicable for this patient encounter. rate is 72 beats/min, rhythm is regular, Pulse oximetry: on room air is 100 %. Test interpretation: by ED physician or midlevel provider:. Counseling: I had a detailed discussion with the patient and/or guardian regarding: the historical points, exam findings, and any diagnostic results supporting the discharge/admit diagnosis, lab results, radiology results. 03/31 20:09 Order name: CBC with Diff; Complete Time: 21:58 [facility] 03/31 20:09 Order name: CMP; Complete Time: 21:58 [facility] 03/31 20:09 Order name: Lipase; Complete Time: 21:58 [facility] 03/31 20:09 Order name: Urine Microscopic Only; Complete Time: 21:58 [facility] 03/31 20:29 Order name: Urine Dipstick-Ancillary; Complete Time: 21:58 [facility] 03/31 20:31 Order name: Urine --Ancillary (enter results) [facility] 03/31 20:09 Order name: CT Abd/Pelvis - IV Contrast Only; Complete Time: 22:11 [facility] 03/31 20:10 Order name: IV Saline Lock; Complete Time: 20:24 [facility] 03/31 20:10 Order name: Labs collected and sent; Complete Time: 20:24 [facility] 03/31 20:10 Order name: Urine Dipstick-Ancillary (obtain specimen); Complete Time: 20:30 [facility] 03/31 20:10 Order name: Urine Test (obtain specimen); Complete Time: 20:30 [facility] Administered Medications: 21:08 Drug: NS 0.9% 1000 ml Route: IV; Rate: 1 bolus; Site: right antecubital; tw5 23:25 Follow up: Response: No adverse reaction; IV Status: Completed infusion; IV Intake: tw5 1000ml 21:08 Drug: Pepcid (famotidine) 20 mg Route: IVP; Site: right antecubital; tw5 21:53 Follow up: Response: No adverse reaction tw5 21:09 Drug: Zofran (Ondansetron) 4 mg Route: IVP; Site: right antecubital; tw5 21:53 Follow up: Response: No adverse reaction tw5 21:12 Drug: morphine 4 mg Route: IVP; Infused Over: 4 mins; Site: right antecubital; tw5 21:53 Follow up: Pain 0/10 Adult; Response: No adverse reaction; Pain is decreased; RASS: tw5 Alert and Calm (0) 22:40 Drug: Ketorolac 30 mg Route: IVP; Site: right antecubital; tw5 23:25 Follow up: Response: No adverse reaction tw5 Disposition Summary: 03/31/22 22:23 Discharge Ordered Location: Home lexi Problem: new lexi Symptoms: have improved lexi Condition: Stable lexi Diagnosis - Pelvic and perineal pain lexi - Other ovarian cysts lexi Followup: lexi - With: Private Physician - When: 2 - 3 days - Reason: Recheck today's complaints, Continuance of care, Re-evaluation by your physician Discharge Instructions: - Discharge Summary Sheet lexi - Abdominal Pain, Adult lexi - Ovarian Cyst lexi - Pelvic Pain, Female lexi - Pelvic Pain, Female, [id number] lexi - Abdominal Pain, Adult, [id number] lexi - Ovarian Cyst, [id number] lexi Forms: - Medication Reconciliation Form lexi - Thank You Letter lexi - Antibiotic Education lexi - Prescription Opioid Use lexi Prescriptions: - Zofran 4 mg Oral Tablet - take 1 tablet by ORAL route every 12 hours As needed; 20 tablet; Refills: 0, lexi Product Selection Permitted - Diclofenac Sodium 75 mg Oral tablet,delayed release (DR/EC) - take 1 tablet by ORAL route 2 times per day; 20 tablet; Refills: 0, Product lexi Selection Permitted - Tylenol-Codeine #3 300 mg-30 mg Oral - take 2 tablet by ORAL route every 6 hours; 20 tablet; Refills: 0, Product lexi Selection Permitted Signatures: Dispatcher [employer] Floyd Goss MD MD cha Wood, Tiffany tw5 Debbie Walsh RN RN jh5
[2022-03-31] MEDS ORDERED: KETOROLAC 30 MG/ML INJ ONE (22:39)
[2022-04-01 08:33] VITALS: TEMP 98.6
[2022-04-01 08:36] VITALS: O2SAT 100
[2022-04-01 08:38] VITALS: BP 121/97
== END 2022-03-31 23:25 | disposition home or self-care (01) ==
LOC: ER 19:41
DX: N83.299 Other ovarian cyst, unspecified side (principal)
CPT/HCPCS: 36415; 74177; 80053; 81003; 81015; 81025; 83690; 85025; 96361; 96374; 96375; 99284; J2405; J7030; Q9967